=== PATIENT | male | born 1965 | race Caucasian/White ===

== ENCOUNTER 2017-07-16 13:08 | Emergency (ER) | payer BC, SELFPAY ==
--- NOTE | 2017-07-16 14:27 | RAD ---
CHEST TWO VIEWS: HISTORY: Cough and fever. COMPARISON: 03/23/2017 FINDINGS: Heart size is within normal limits. There are postop sternotomy changes. The lungs are clear of inf iltrates or arthritic changes of the spine. IMPRESSION: No active intrathoracic disease. POS: [facility]
== END 2017-07-16 15:24 | disposition home or self-care (01) ==
LOC: ERS 13:08
DX: B34.9 Viral infection, unspecified (principal); K21.9 Gastro-esophageal reflux disease without esophagitis; I25.2 Old myocardial infarction; I25.10 Atherosclerotic heart disease of native coronary artery without angina pectoris; I10 Essential (primary) hypertension; Z79.82 Long term (current) use of aspirin; Z79.899 Other long term (current) drug therapy
CPT/HCPCS: 71020

== ENCOUNTER 2018-10-13 07:51 | Emergency (ER) | payer BC, SELFPAY ==
[2018-10-13] MEDS ORDERED: diphenhydrAMINE 50 MG/ML VIAL ONE (08:07)
[2018-10-13] MEDS ORDERED: methylPREDNISolone Sod Succ/PF 125 MG/2 ML VIAL ONE (08:07)
[2018-10-13] MEDS ORDERED: Famotidine/PF 20 mg/2ml Vial ONE (08:07)
== END 2018-10-13 09:10 | disposition home or self-care (01) ==
LOC: ERS 07:51
DX: L29.9 Pruritus, unspecified (principal); T36.0X5A Adverse effect of penicillins, initial encounter; I10 Essential (primary) hypertension; K21.9 Gastro-esophageal reflux disease without esophagitis; I25.10 Atherosclerotic heart disease of native coronary artery without angina pectoris; I25.2 Old myocardial infarction; Z79.82 Long term (current) use of aspirin; Z79.899 Other long term (current) drug therapy
CPT/HCPCS: 96374; 96375; J1200; J2930; S0028

== ENCOUNTER 2019-02-27 12:28 | Emergency (ER) | payer SELFPAY ==
[2019-02-27 13:12] LABS: Bilirubin Negative (Negative); Blood, Urine Negative (Negative); Clarity Clear (Clear); Glucose, Urine (Dipstick) 70 mg/dL (Negative); Leukocyte Negative Leu/uL (Negative); Nitrite Negative (Negative); Protein, Urine (Dipstick) 20 mg/dL (Neg-Trace); Urobilinogen Normal mg/dL (Less than 2)
--- NOTE | 2019-02-27 13:20 | ULT ---
EXAM: US Testicular W Doppler PROVIDED CLINICAL HISTORY: Groin pain COMPARISON: None FINDINGS: Right testicle measures approximately 2.6 x 2.3 x 2.8 cm and demonstrates a normal grayscale sonograp hic appearance. The right epididymis appears normal. There is a mild to moderate right hydrocele. Left testicle measures about 3 x 2.2 x 4 cm and demonstrates a normal grayscale sonographic appearanc e. There is a 1.6 cm left epididymal head cyst. There is mild to moderate left hydrocele. Color Doppler and spectral analysis of the testicular waveforms demonstrates flow bilaterally. No issa icocele is evident. IMPRESSION: 1. Mild-moderate bilateral hydroceles. 2. 1.6 cm left epididymal head cyst.
== END 2019-02-27 17:22 | disposition home or self-care (01) ==
LOC: ERS 12:28
DX: R33.9 Retention of urine, unspecified (principal); I25.10 Atherosclerotic heart disease of native coronary artery without angina pectoris; I25.2 Old myocardial infarction; I10 Essential (primary) hypertension; K21.9 Gastro-esophageal reflux disease without esophagitis
CPT/HCPCS: 76870; 81003; 93976

== ENCOUNTER 2022-03-17 15:33 | Emergency (ER) | payer OTHER ==
[2022-03-17] MEDS ORDERED: Lidocaine 1% PF 5 ML VIAL ONE ×3 (16:35→16:37)
== END 2022-03-17 17:33 | disposition home or self-care (01) ==
LOC: ERS 15:33
DX: S61.512A Laceration without foreign body of left wrist, initial encounter (principal); K21.9 Gastro-esophageal reflux disease without esophagitis; I25.2 Old myocardial infarction; I25.10 Atherosclerotic heart disease of native coronary artery without angina pectoris; I10 Essential (primary) hypertension; Z79.899 Other long term (current) drug therapy; W26.8XXA Contact with other sharp object(s), not elsewhere classified, initial encounter
CPT/HCPCS: 12002